=== PATIENT | female | born 1960 | race Caucasian/White ===

== ENCOUNTER → 2020-01-21 | Outpatient (CLI) | payer OTHER ==
[~2020-01-21] MED LIST: GADOTERATE 5 MMOL/10ML VIAL. ONE; IOHEXOL 300 MG/ML 50 ML VIAL. ONE; LIDOCAINE 1% Multi-Dose 20 ML VIAL. ONE
--- NOTE | 2020-01-21 10:21 | RAD ---
EXAM: Left shoulder injection WITH Fluoroscopic guidance DATE: 01/21/2020 9:30 AM CLINICAL HISTORY: Left shoulder pain, osteoarthritis COMPARISON: None pertinent TECHNIQUE: The patient was informed of the indications and alternatives for this procedure as well as risks and benefits. No immediate contraindication identified. The patient provided informed, written consent. Laterality was confirmed by the entire team following a time out. Following initial left shoulder joint localization, a suitable area was sterilely prepped and draped. Local anesthesia was administered with 1% xylocaine. With intermittent fluoroscopic observation, a 22-gauge spinal needle was advanced into the left shoulder joint sheath/capsule with confirmation of intra-synovial position with infusion of less than 1 cc iodinated contrast. Subsequent infusion 12 mL of solution containing 10 cc saline, 5 cc lidocaine 1%, 5 cc Isovue and 0.1 cc gadolinium Hemostasis with local pressure. Local clinical exam negative for immediate complication. Patient informed re local potential signs or symptoms that may indicate need to return to ER/Ordering physician for further evaluation. Patient informed re precautionary measures after intra-synovial injection of anesthetic. Patient expressed understanding. Performing Physicians: Dr. Alexandria Pike Blood Loss: 0 cc Total Fluoroscopy time: 0.2 minutes Total spot images taken: 0 IMPRESSION: Successful intra-synovial injection left shoulder joint pre-MRI with gadolinium contrast, per clinical request. Electronically signed by: Francisco Pike MD (01/21/2020 10:17 AM) [id number]
--- NOTE | 2020-01-21 14:46 | RAD ---
EXAM: MR LEFT SHOULDER INDICATION: Limited range of motion and increased pain for 9 weeks COMPARISON: None TECHNIQUE: Multiplanar, multisequence imaging of the left shoulder after intra-articular injection of contrast, performed separately. FINDINGS: Exam is limited by motion artifact on coronal and sagittal T2 fat sat sequences. ROTATOR CUFF: The supraspinatus and infraspinatus tendons are intact. There is a partial tearing of the far cranial subscapularis tendon. The tear is minor tendon is intact. Mild teres minor atrophy without edema. LABRUM: There is diffuse degenerative labral tearing. Superiorly, this extends into the biceps anchor. BICEPS TENDON: Biceps tendon is subluxed medially in the bicipital groove. There is longitudinal splitting of the intra-articular biceps tendon and as it exits the joint. The more distal extra articular biceps tendon is intact and the groove. There is synovitis in the biceps tendon sheath. ACROMIOCLAVICULAR JOINT: Mild degenerative joint disease with small osteophytes. Type I acromion without downsloping. GLENOHUMERAL JOINT: There is deep partial and full-thickness cartilage loss along the glenoid, greatest posteriorly. Scattered partial-thickness cartilage loss along the humeral head with areas of deep partial thickness cartilage loss superiorly. There are prominent humeral head and glenoid osteophytes and subchondral cysts in the glenoid. OTHER: Contrast distends the joint. There is extensive synovitis. A 1.1 cm articular body is in the inferior axillary recess. No contrast or fluid in the subacromial-subdeltoid bursa. IMPRESSION: 1. Moderate glenohumeral degenerative joint disease with areas of deep partial and full thickness cartilage loss. Synovitis and 1.1 cm intraarticular body in the glenohumeral joint. 2. Diffuse degenerative labral tearing extending into biceps anchor, and longitudinal split tear of intraarticular biceps tendon. Biceps tenosynovitis. 3. Small partial tear of cranial subscapularis tendon, no definite tear of supraspinatus or infraspinatus tendons. Electronically signed by: Ml Ortiz MD (01/21/2020 2:43 PM) [id number]
== END | disposition home or self-care (01) ==
LOC: RAD 14:20
PROVIDERS: ATTEND Orthopaedic Surgery
DX: M19.012 Primary osteoarthritis, left shoulder (principal); M25.512 Pain in left shoulder
CPT/HCPCS: 73040; 73222